=== PATIENT | male | born 1950 | race Caucasian/White ===

== ENCOUNTER → 2024-11-22 | Outpatient (CLI) | payer MEDICARE, BC | LOC: M SOG 13:55 | PROVIDERS: ATTEND Physician Assistant | DX: M17.11 Unilateral primary osteoarthritis, right knee (principal); M25.561 Pain in right knee ==

== ENCOUNTER → 2024-11-26 | Outpatient (CLI) | payer MEDICARE, BC | LOC: M PLAIMG 12:51 | PROVIDERS: ATTEND Neuromusculoskeletal Medicine, Sports Medicine | DX: S80.01XA Contusion of right knee, initial encounter (principal); S83.241A Other tear of medial meniscus, current injury, right knee, initial encounter; X58.XXXA Exposure to other specified factors, initial encounter; Y92.9 Unspecified place or not applicable; Y93.9 Activity, unspecified; Y99.9 Unspecified external cause status ==